=== PATIENT | male | born 1955 | race Caucasian/White ===

== ENCOUNTER 2022-06-25 12:42 | Emergency (ER) | payer MEDICARE, OTHER, MEDICAID ==
[~2022-06-25] VITALS: Ht 195.6 cm; Wt 118.2 kg
[~2022-06-25 12:42] MED LIST: 00186-0372-20 IH; AMBIEN 10MG10 MG PO; CRESTOR40 MG PO; HCTZ12.5TAB PO; NEURONTIN300 MG/CAP PO; NORCO 325 MG-101 TAB PO; SINGULAIR 110 MG/TAB PO; TAZTIA240; VYVANSE40 MG PO
[2022-06-25 13:00] VITALS: TEMP 98.6
[2022-06-25] MEDS ORDERED: CEPHALEXIN500 M1 PO (13:25)
[2022-06-25] MEDS ORDERED: PERCOCET 325 MG1 TA2 PO (13:25)
[2022-06-25 13:53] VITALS: BP 154/85; PULSE 106
== END 2022-06-25 13:55 | disposition home or self-care (01) ==
LOC: COL.ER 12:42
DX: T81.40XA Infection following a procedure, unspecified, initial encounter (principal); L03.115 Cellulitis of right lower limb; Z96.651 Presence of right artificial knee joint
CPT/HCPCS: J0696; J2270